=== PATIENT | male | born 1945 | race Caucasian/White ===

== ENCOUNTER 2023-12-23 14:31 | Emergency (ER) | payer MEDICARE ==
[~2023-12-23] VITALS: Ht 167.6 cm; Wt 95.3 kg
[2023-12-23] MEDS ORDERED: ALBUTEROL/IPRATROPIUM 3 ML NEB INH PRN (15:15)
[2023-12-23 15:19] LABS: BASOPHILS 0.6 % (0-2); EOSINOPHILS 4.6 % (0-6); HEMATOCRIT 39.7 % (35.0-50.0); HEMOGLOBIN 13.2 g/dL (12.0-18.0); LYMPHOCYTES 13.3 % (24-44); MCH 31.4 (27-36); MCHC 33.3 g/dl (30-36); MCV 94.3 fl (81-99); MONOCYTES 9.9 % (0-12); NEUTROPHILS 71.6 % (39-80); PLATELET COUNT 248 K/uL (140-440); RBC 4.21 M/ul (4.3-5.7); RDW 14.3 (10.5-15.0)
[2023-12-23 15:46] LABS: ALBUMIN 2.8 g/dL (3.4-5.0); ALBUMIN/GLOBULIN RATIO 0.76 (1.1-2.4); ANION GAP 12.2 (7-21); BILIRUBIN, TOTAL 0.7 ng/dL (0.2-1.0); BUN/CREATININE RATIO 17.52 (6.0-28.6); CALCIUM 8.7 mg/dL (8.5-10.1); CREATININE, SERUM 0.97 mg/dL (0.70-1.30); POTASSIUM 4.2 mmol/L (3.5-5.1); PROTEIN, TOTAL 6.5 g/dL (6.4-8.2)
[2023-12-23] MEDS ORDERED: FUROSEMIDE 20 MG/2 ML VIAL IV ONE (16:15)
[2023-12-23] MEDS ORDERED: FUROSEMIDE 40 MG/4 ML VIAL IV ONE (16:15)
[2023-12-23] MEDS ORDERED: VENTOLIN HFA18 GM INH (16:20)
[2023-12-23] MEDS ORDERED: LASIX20 MG PO (16:20)
[2023-12-23] MEDS ORDERED: K-TAB ER20 MEQ PO (16:20)
[2023-12-23 16:28] VITALS: BP 121/87
--- NOTE | 2023-12-23 22:13 | EKG ---
[facility] [address] [facility] [place] [address] Signed Atrial fibrillation Abnormal ECG No previous ECGs available Confirmed by Kirsty Little MD () on 12/23/2023 10:13:50 PM Electronically Signed By: KIRSTY LITTLE MD 12/23/232212 PATIENT NAME: KANG BELTRÁN Electrocardiogram DATE OF : 47 PHYSICIAN: KIRSTY LITTLE MD REPORT #: [id number] REPORT IS CONFIDENTIAL AND NOT TO BE RELEASED WITHOUT AUTHORIZATION
== END 2023-12-23 16:37 | disposition home or self-care (01) ==
LOC: ED 14:31
PROVIDERS: Emergency Medicine
DX: I50.9 Heart failure, unspecified (principal); I48.91 Unspecified atrial fibrillation; Z86.73 Personal history of transient ischemic attack (TIA), and cerebral infarction without residual deficits; Z88.0 Allergy status to penicillin; Z79.899 Other long term (current) drug therapy
CPT/HCPCS: 36415; 71045; 80053; 83735; 83880; 84484; 85025; 93005; 93010; 94640; 96374; 99285-25; J1940